=== PATIENT | female | born 1970 | race Native Hawaiian/Other Pacific Islander ===

== ENCOUNTER 2020-05-04 12:32 | Emergency (ER) | payer OTHER ==
[~2020-05-04] VITALS: Ht 165.1 cm; Wt 81.6 kg
[2020-05-04 13:38] VITALS: BP 130/88; TEMP 98.7
== END 2020-05-04 14:00 | disposition home or self-care (01) ==
LOC: ED 12:32
DX: K04.7 Periapical abscess without sinus (principal)
CPT/HCPCS: 99282